=== PATIENT | male | born 1955 | race Caucasian/White ===

== ENCOUNTER 2021-03-20 07:10 | Day surgery (SDC) | payer MEDICARE, OTHER ==
[~2021-03-20] VITALS: Ht 177.8 cm; Wt 110.5 kg
[~2021-03-20 07:10] MED LIST: ALBU90OI INH; C COMPLEX1000 M1 PO; Children's Clari5 MG PO; ERGO400 PO; LEVFLO500 PO; MULTIPLE VITAM1 EACH PO; TOCO1000 PO; VITAMIN B PO; Vitamin B-Comp1 EAC7 PO; XARELTO15 MG PO
== END 2021-03-20 09:18 | disposition home or self-care (01) ==
LOC: ORSCSDS 07:10
PROVIDERS: Surgery
PROC: 0DBP8ZX Excision of Rectum, Via Natural or Artificial Opening Endoscopic, Diagnostic (ICD-10-PCS; principal; 2021-03-20 08:15)
PROC: 0DBM8ZX Excision of Descending Colon, Via Natural or Artificial Opening Endoscopic, Diagnostic (ICD-10-PCS; principal; 2021-03-20 08:15)
DX: Z12.11 Encounter for screening for malignant neoplasm of colon (principal); Z86.010 Personal history of colon polyps; D12.4 Benign neoplasm of descending colon; K62.1 Rectal polyp; I10 Essential (primary) hypertension; G47.33 Obstructive sleep apnea (adult) (pediatric); E78.5 Hyperlipidemia, unspecified; E66.9 Obesity, unspecified; Z68.35 Body mass index [BMI] 35.0-35.9, adult
CPT/HCPCS: 88305; J0330; J0461; J2405; J2704; J7120